=== PATIENT | female | born 1945 | race Asian ===

== ENCOUNTER 2018-05-10 13:15 | Emergency (ER) | payer MEDICARE ==
[~2018-05-10] VITALS: Ht 154.9 cm; Wt 63.6 kg
[2018-05-10] MEDS ORDERED: ACETAMINOPHEN 500 MG TABLET PO ONE (13:45)
[2018-05-10] MEDS ORDERED: LIDOCAINE HCL 5% TRANSDERMAL PATCH TD ONE (13:45)
[2018-05-10 15:23] VITALS: BP 159/97
== END 2018-05-10 15:24 | disposition home or self-care (01) ==
LOC: EMS 13:16
DX: M54.2 Cervicalgia (principal); R07.9 Chest pain, unspecified; M79.602 Pain in left arm; I10 Essential (primary) hypertension; V49.40XA Driver injured in collision with unspecified motor vehicles in traffic accident, initial encounter; Y93.89 Activity, other specified; Y92.89 Other specified places as the place of occurrence of the external cause; Y99.8 Other external cause status
CPT/HCPCS: 72040; 99284